=== PATIENT | female | born 1975 | race African-American/Black ===

== ENCOUNTER → 2019-10-17 | Outpatient (CLI) | payer OTHER ==
--- NOTE | 2019-10-17 18:14 | RAD ---
PA and lateral chest. HISTORY: Positive quant-gold, asymptomatic, rule out active TB PA and lateral views were taken of the chest. Lungs are free of infiltrates. There is no pleural effusion. There is slight scoliosis. Heart is normal in size. There is not radiographic evidence of active TB. IMPRESSION: 1. No acute chest disease. Electronically signed by: Otilio Hernandez MD (10/17/2019 6:11 PM) [id number]
== END | disposition home or self-care (01) ==
LOC: LAB 09:27
PROVIDERS: ATTEND Internal Medicine
DX: Z11.1 Encounter for screening for respiratory tuberculosis (principal)
CPT/HCPCS: 71046